=== PATIENT | female | born 1980 | race Caucasian/White ===

== ENCOUNTER → 2021-09-08 14:18 | Outpatient (CLI) | payer OTHER, SELFPAY ==
--- NOTE | ~2021-09-08 | MMUS_ITS ---
EXAMINATION: MM diagnostic isabel BI w giovanni, US breast BI limited HISTORY: Palpable lumps in the lower outer right breast, lower inner left breast, and upper inner lef t breast TECHNIQUE: Craniocaudal, mediolateral, and mediolateral oblique 3-D tomosynthesis images of the breas ts were performed and synthetic 2-D images were generated. CAD analysis was submitted and interpreted . High resolution limited bilateral breast ultrasound was performed. COMPARISON: No prior mammogram is currently available for comparison. BREAST PARENCHYMAL COMPOSITION: The breasts are extremely dense, which lowers the sensitivity of mamm ography. FINDINGS: MAMMOGRAPHIC FINDINGS: There is no suspicious mass, calcification, or architectural distortion in either breast to suggest malignancy. No mammographic correlate is identified for the reported palpable abnormality of concern in either breast. ULTRASOUND: There is no evidence of focal abnormal solid or cystic mass in the vicinity of the reported palpable abnormality of concern in either breast. IMPRESSION: 1. No specific mammographic or sonographic correlate is identified for the reported palpable abnormal ity of concern in either breast. Further evaluation at this time should be based on clinical assessme nt. Continued follow-up physical examination is recommended. 2. Patient was reportedly undergoing surveillance of an abnormality near the right axilla. Comparison with prior mammograms is necessary to assess for any interval change. BI-RADS Category 0: Incomplete: Needs comparison with prior mammograms. Reviewed, dictated and finalized at location A. IMPRESSION: 1. No specific mammographic or sonographic correlate is identified for the repo rted palpable abnormality of concern in either breast. Further evaluation at th is time should be based on clinical assessment. Continued follow-up physical ex amination is recommended. 2. Patient was reportedly undergoing surveillance of an abnormality near the ri t axilla. Comparison with prior mammograms is necessary to assess for any int erval change. BI-RADS Category 0: Incomplete: Needs comparison with prior mammograms. IMPRESSION: 1. No specific mammographic or sonographic correlate is identified for the repo rted palpable abnormality of concern in either breast. Further evaluation at th is time should be based on clinical assessment. Continued follow-up physical ex amination is recommended. 2. Patient was reportedly undergoing surveillance of an abnormality near the ri ght axilla. Comparison with prior mammograms is necessary to assess for any int erval change. BI-RADS Category 0: Incomplete: Needs comparison with prior mammograms.
== END ==
PROVIDERS: PCP Nurse Practitioner Family; Visit Provider Nurse Practitioner Family
DX: N63.20 Unspecified lump in the left breast, unspecified quadrant (principal); R92.8 Other abnormal and inconclusive findings on diagnostic imaging of breast
CPT/HCPCS: 76642; 77062; 77066; G0279

== ENCOUNTER 2021-09-25 08:50 | Emergency (ER) | payer OTHER, SELFPAY ==
[2021-09-25 08:56] VITALS: RESP 20; O2SAT 100
[2021-09-25 09:01] VITALS: BP 135/86; PULSE 79; RESP 11; TEMP 36.6; O2SAT 96
--- NOTE | 2021-09-25 09:03 | ED.SYNCOPE ---
HPI - Syncope General Chief Complaint: Syncope Stated Complaint: dizzy and passed out saturday Time Seen by Provider: 09/25/21 08:55 History of Present Illness HPI narrative: Patient is a 41-year-old female here for evaluation of a syncopal episode 3 days ago and some tingling in her extremities today. Patient states that she was walking outside in the heat when she felt lightheaded, began to see stars, sat down, and passed out. Patient states she was with a friend who witnessed the entire episode, she denies witnessing any seizure-like activity and states that patient was down for about 30 seconds. Patient came to spontaneously, states she felt funny for the next 45 minutes. Patient returned to her baseline, however she woke up today feeling paresthesias in her bilateral hands. Prior to the episode occurring or currently, she denies any chest pain, shortness of breath, fevers, chills, calf pain, leg swelling. She does note that she is being weaned off venlafaxine which she takes for anxiety by her primary care provider due to GI upset. She is currently taking 115 mg daily; does note that she feels quite anxious. Related Data Allergies Allergy/AdvReac Type Severity Reaction Status Date / Time latex Allergy Mild Rash Verified 09/25/21 09:15 acetaminophen AdvReac Mild NAUSEA Verified 09/25/21 09:15 HYDROCODONE BIT AdvReac Mild NAUSEA Uncoded 09/25/21 09:15 Review of Systems Review of Systems: Gen: Reports syncope and tingling in hands Denies fevers or chills Eyes: Denies eye pain or visual change ENT: Denies congestion Respiratory: Denies shortness of breath or cough CV: Denies chest pain or palpitations GI: Denies abdominal pain nausea, emesis or diarrhea : denies burning, urgency, frequency or hematuria Musculoskeletal: Denies back pain or muscle pain Neuro: Denies numbness, tingling, weakness or focal weakness Skin: Denies rash Except as documented, all other systems reviewed and negative Exam Narrative: APPEARANCE: Well appearing, no pain in distress, well-nourished. Head: Normocephalic and atraumatic. EYES: PERRLA/EOMI, conjunctivae clear NOSE: No nasal drainage EARS: External ear normal in appearance THROAT: Oropharynx is clear. Mucous membranes are moist. NECK: Supple. No adenopathy, no masses. RESPIRATORY: Airway patent, respirations nonlabored. Clear to auscultation bilaterally, no rales, rhonchi, wheezing. CARDIOVASCULAR: Regular rate and rhythm without murmurs, rubs, or gallops. ABDOMINAL: Normoactive bowel sounds. Soft, nontender, nondistended. No rebound tenderness or guarding. MUSCULOSKELETAL: Extremities are warm and well-perfused. Moves all extremities well. No edema. NEURO: Normal speech. No focal neurologic deficits. SKIN: Skin is warm and dry. No rashes. PSYCHIATRIC: Normal affect/mood. Course Vital Signs Vital signs: Vital Signs Respiratory Rate 20 09/25/21 08:56 Pulse Oximetry 100 09/25/21 08:56 Temperature 97.9 F 09/25/21 09:01 Pulse Rate 71 09/25/21 10:02 Respiratory Rate 15 09/25/21 10:02 Blood Pressure 103/68 09/25/21 10:02 Pulse Oximetry 98 09/25/21 10:02 Oxygen Delivery Room Air 09/25/21 09:18 MDM - Syncope MDM Narrative Medical decision making narrative: 41-year-old female here for evaluation of syncopal episode 2 days ago and tingling in her extremities today. History is consistent with reflex syncope. Tingling in her extremities is likely due to tapering dose of venlafaxine. No electrolyte derangements to explain symptoms. EKG is reassuring. We will have patient follow-up with her primary care provider. 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 Discussed return precautions, she voiced understanding. Lab Data Result diagrams: 09/25/21 09:09 09/25/21 09:09 Labs: Lab Results 09/25/21 09/25/21 Range/Units 09:09 09:09 WBC 10.7 H (4.5-10.0) K/mm3 RBC 4.96
--- NOTE | 2021-09-25 09:06 | ECG_ITS ---
Measurements Intervals [place] Rate: 75 P: 33 [place]: 142 QRS: 10 QRSD: 84 T: 12 QT: 359 QTc: 402 Interpretive Statements SINUS RHYTHM MODERATE VOLTAGE CRITERIA FOR LVH, CONSIDER NORMAL VARIANT [MEETS CRITERIA IN ONE OF: R(aVL), S(V1), R(V5), R(V5/V6)+S(V1)] NO PREVIOUS ECG AVAILABLE FOR COMPARISON Electronically Signed On 09-26-2021 19:32:59 CDT by Tierney Pelletier M.D.
[2021-09-25 09:15] LABS: Basophils Absolute Auto 0.1 K/mm3 (0.0-0.1); Basophils Percent Auto 0.8 % (0.2-1.2); Eosinophils Absolute Auto 0.1 K/mm3 (0-0.3); Eosinophils Percent Auto 0.8 % (0-4.4); Hematocrit 44.6 % (37.0-47.0); Hemoglobin 14.7 g/dL (12.0-15.0); Immature Granulocyte Absolute 0.32 K/mm3 (0.00-0.031); Lymphocytes Absolute Auto 2.22 K/mm3 (0.9-3.2); Lymphocytes Percent Auto 20.8 % (18.3-44.2); Mean Corpuscular Hemoglobin 29.6 pg (26-34); Mean Corpuscular Volume 89.9 fl (80-100); Monocytes Absolute Auto 0.7 K/mm3 (0.1-0.6); Monocytes Percent Auto 6.7 % (2.6-8.5); Neutrophils Absolute Auto 7.2 K/mm3 (1.3-6.7); Neutrophils Percent Auto 67.9 % (45.5-73.1); Platelet Count Result 419 k/mm3 (150-375); Red Blood Count 4.96 M/mm3 (4.2-5.4); Red Cell Distribution Width 13.3 % (11.5-14.5); White Blood Count 10.7 K/mm3 (4.5-10.0)
[2021-09-25 09:41] LABS: Alanine Aminotransferase 15 U/L (6-35); Albumin Level 4.9 g/dL (3.5-5.1); Alkaline Phosphatase 75 U/L (38-126); Anion Gap 7 mmol/L (8-16); Aspartate Amino Transferase 27 U/L (14-36); Bilirubin,Total 0.2 mg/dL (0.2-1.3); Blood Urea Nitrogen 11 mg/dL (7-17); Calcium 9.3 mg/dL (8.4-10.2); Carbon Dioxide 30 mmol/L (22-30); Chloride 102 mmol/L (98-107); Estimated CRCL calculation 89 ml/min; Estimated Glomerular Filt Rate > 60; Glucose 86 mg/dL (65-110); Potassium 4.2 mmol/L (3.4-5.0); Sodium 139 mmol/L (137-145)
[2021-09-25 09:50] VITALS: PULSE 73; RESP 18; O2SAT 97
[2021-09-25 10:00] VITALS: PULSE 67; RESP 20; O2SAT 98
[2021-09-25 10:02] VITALS: BP 103/68; PULSE 71; RESP 15; O2SAT 98
== END 2021-09-25 10:21 | disposition home or self-care (01) ==
PROVIDERS: Physician Assistant; Emergency Provider Emergency Medicine; PCP Nurse Practitioner Family
DX: R55 Syncope and collapse (principal); R94.31 Abnormal electrocardiogram [ECG] [EKG]
CPT/HCPCS: 36415; 80053; 81025; 85025; 93005; 99283